=== PATIENT | male | born 1960 | race Caucasian/White ===

== ENCOUNTER 2019-09-07 12:38 | Day surgery (SDC) | payer OTHER ==
[2019-09-05 09:38] LABS: MICROSCOPIC AUTO
[~2019-09-07] VITALS: Ht 165.1 cm; Wt 78.7 kg
[~2019-09-07 12:38] MED LIST: ATEN25TA PO; FENO54TA17 PO; HYDR25TA6 PO; TAMS-11 PO
[2019-09-07] MEDS ORDERED: LACTATED RINGERS 1,000 ML IV SCH (12:51)
[2019-09-07] MEDS ORDERED: CHLORHEXIDINE 15 ML UDC MM ONE (13:00)
[2019-09-07 13:01] VITALS: BP 151/96
[2019-09-07] MEDS ORDERED: MIDAZOLAM 1 MG/ML, 2ML ONE (14:43)
[2019-09-07] MEDS ORDERED: FENTANYL PF 100 MCG/2ML ONE (14:44)
[2019-09-07] MEDS ORDERED: PROPOFOL 10 MG/ML, 20ML ONE (14:56)
[2019-09-07] MEDS ORDERED: CEFAZOLIN 1,000 MG ONE (14:56)
[2019-09-07] MEDS ORDERED: ONDANSETRON 2MG/ML, 2ML ONE (14:56)
[2019-09-07] MEDS ORDERED: DEXAMETHASONE 4 MG/ML, 1ML ONE (14:56)
[2019-09-07] MEDS ORDERED: SODIUM CHLORIDE 0.9% INTVESIC ONE (15:00)
[2019-09-07] MEDS ORDERED: MITOMYCIN INTVESIC ONE (15:00)
[2019-09-07] MEDS ORDERED: HYDROcodone/APAP 7.5-325MG/15ML UDC PO PRN (15:30)
[2019-09-07] MEDS ORDERED: FENTANYL PF 100 MCG/2ML IV PRN (15:30)
[2019-09-07] MEDS ORDERED: MEPERIDINE/PF 25MG/0.5ML IVPush PRN (15:30)
[2019-09-07] MEDS ORDERED: LORazepam 2 MG/ML, 1ML IVPush PRN (15:30)
[2019-09-07] MEDS ORDERED: HYDROmorphone 1 MG/ML, 1ML INJ IVPush PRN (15:30)
[2019-09-07] MEDS ORDERED: PROMETHAZINE 25 MG/ML, 1ML IVPush PRN (15:30)
[2019-09-07] MEDS ORDERED: hydrALAzine 20 MG/ML, 1ML ONE (16:12)
[2019-09-07] MEDS ORDERED: hydrALAzine 20 MG/ML, 1ML IV PRN (16:30)
[2019-09-08] MEDS ORDERED: FENOFIBRATE 54 MG TABLET PO SCH (09:00)
[2019-09-08] MEDS ORDERED: TAMSULOSIN 0.4 MG CAP.ER.24H PO SCH (09:00)
[2019-09-08] MEDS ORDERED: HYDROCHLOROTHIAZIDE 25 MG TABLET PO SCH (09:00)
[2019-09-08] MEDS ORDERED: ATENOLOL 25 MG TABLET PO SCH (09:00)
== END 2019-09-07 18:15 | disposition home or self-care (01) ==
LOC: OUT 12:38
PROVIDERS: ATTEND Urology
DX: D49.4 Neoplasm of unspecified behavior of bladder (principal); C67.3 Malignant neoplasm of anterior wall of bladder; I10 Essential (primary) hypertension; N28.1 Cyst of kidney, acquired; N40.0 Benign prostatic hyperplasia without lower urinary tract symptoms; Z79.899 Other long term (current) drug therapy; Z87.891 Personal history of nicotine dependence; Z98.890 Other specified postprocedural states
CPT/HCPCS: 51720; 52235; 81001; 87086; 88307; 93005; J0690; J1100; J2250; J2405; J2704; J3010; J7120; J9280; U0001

== ENCOUNTER → 2019-12-13 | Outpatient (CLI) | payer OTHER ==
[2019-12-13 10:14] LABS: MICROSCOPIC NOT IND
[2019-12-13 10:14] LABS: BASOPHILS # (AUTO) 0.04 x10^3/uL (0-0.1); BASOPHILS % (AUTO) 1 % (0-1); EOSINOPHILS % (AUTO) 4 % (1-7); LYMPHOCYTES # (AUTO) 1.78 x10^3/uL (1-3.4); LYMPHOCYTES % (AUTO) 22 % (22-44); MD NO; MEAN CORPUSCULAR HEMOGLOBIN 32.7 pg (27.5-34.5); MEAN CORPUSCULAR HGB CONC 33.8 g/dL (33.2-36.2); MEAN CORPUSCULAR VOLUME 96.9 fL (81-97); MEAN PLATELET VOLUME 8.4 fL (7.4-10.4); MONOCYTES # (AUTO) 0.57 x10^3/uL (0.2-0.8); MONOCYTES % (AUTO) 7 % (2-9); NEUTROPHILS # (AUTO) 5.25 x10^3/uL (1.8-6.8); NEUTROPHILS % (AUTO) 66 % (42-75); PLATELET COUNT 234 x10^3/uL (130-400); RED BLOOD COUNT 5.13 x10^6/uL (4.38-5.82); RED CELL DISTRIBUTION WIDTH 12.6 % (9.4-14.8)
[2019-12-13 10:25] LABS: ANION GAP 6 mmol/L (5-15); CALCIUM 9.9 mg/dL (8.5-10.1); CHLORIDE 106 mmol/L (98-107); CREATININE 1.12 mg/dL (0.7-1.3)
== END | disposition home or self-care (01) ==
LOC: STAR 07:41
PROVIDERS: ATTEND Urology
DX: Z01.818 Encounter for other preprocedural examination (principal); C67.9 Malignant neoplasm of bladder, unspecified
CPT/HCPCS: 36415; 80048; 81003; 85025; 87086; 93005

== ENCOUNTER → 2019-12-16 | Outpatient (CLI) | payer OTHER ==
[~2019-12-16] MED LIST changes: +LOVA20TA2 PO
== END | disposition home or self-care (01) ==
LOC: STAR 08:23
PROVIDERS: ATTEND Anesthesiology
DX: Z01.812 Encounter for preprocedural laboratory examination (principal); Z20.828 Contact with and (suspected) exposure to other viral communicable diseases
CPT/HCPCS: 36415; 87635

== ENCOUNTER 2019-12-20 08:00 | Day surgery (SDC) | payer OTHER ==
[~2019-12-20] VITALS: Ht 165.1 cm; Wt 78.3 kg
[~2019-12-20 08:00] MED LIST changes: -LOVA20TA2 PO
[2019-12-20] MEDS ORDERED: LACTATED RINGERS 1,000 ML IV SCH (13:53)
[2019-12-20] MEDS ORDERED: LOVA20TA2 PO (13:54)
[2019-12-20 13:56] VITALS: BP 157/99
[2019-12-20] MEDS ORDERED: CHLORHEXIDINE 15 ML UDC MM ONE (14:00)
[2019-12-20] MEDS ORDERED: FENTANYL PF 100 MCG/2ML ONE (14:18)
[2019-12-20] MEDS ORDERED: MIDAZOLAM 1 MG/ML, 2ML ONE (14:19)
[2019-12-20] MEDS ORDERED: LIDOCAINE 2%, 20ML ONE (14:49)
[2019-12-20] MEDS ORDERED: ONDANSETRON 2MG/ML, 2ML ONE (15:17)
[2019-12-20] MEDS ORDERED: PROPOFOL 10 MG/ML, 20ML ONE (15:17)
[2019-12-20] MEDS ORDERED: CEFAZOLIN 1,000 MG ONE (15:17)
[2019-12-20] MEDS ORDERED: ROCURONIUM 10MG/ML,5ML ONE (15:17)
[2019-12-20] MEDS ORDERED: DEXAMETHASONE 4 MG/ML, 1ML ONE (15:17)
[2019-12-20] MEDS ORDERED: SUGAMMADEX 200 MG/2 ML IVPush ONE (15:17)
[2019-12-20] MEDS ORDERED: hydrALAzine 20 MG/ML, 1ML IV PRN (15:30)
[2019-12-20] MEDS ORDERED: LABETALOL 5MG/ML, 20ML IV PRN (15:30)
[2019-12-20] MEDS ORDERED: ACETAMINOPHEN 325 MG TABLET PO PRN (15:30)
[2019-12-20] MEDS ORDERED: OXYcodone 5 MG/5 ML ORAL.SOL UDC PO PRN (15:30)
[2019-12-20] MEDS ORDERED: PROMETHAZINE 12.5 MG SUPP PR PRN (15:30)
[2019-12-20] MEDS ORDERED: ONDANSETRON 2MG/ML, 2ML IVPush PRN (15:30)
[2019-12-20] MEDS ORDERED: LORazepam 2 MG/ML, 1ML IVPush PRN (15:30)
[2019-12-20] MEDS ORDERED: FENTANYL PF 100 MCG/2ML IV PRN (15:30)
[2019-12-20] MEDS ORDERED: HYDROmorphone 1 MG/ML, 1ML INJ IVPush PRN (15:30)
[2019-12-20] MEDS ORDERED: PROMETHAZINE 25 MG SUPP PR PRN (15:30)
[2019-12-21] MEDS ORDERED: HYDROCHLOROTHIAZIDE 25 MG TABLET PO SCH (09:00)
[2019-12-21] MEDS ORDERED: FENOFIBRATE 54 MG TABLET PO SCH (09:00)
[2019-12-21] MEDS ORDERED: ATENOLOL 25 MG TABLET PO SCH (09:00)
== END 2019-12-20 16:30 | disposition home or self-care (01) ==
LOC: OR 08:00
PROVIDERS: ATTEND Urology
DX: C67.5 Malignant neoplasm of bladder neck (principal); N30.90 Cystitis, unspecified without hematuria; I10 Essential (primary) hypertension; Z79.899 Other long term (current) drug therapy; Z87.891 Personal history of nicotine dependence; Z98.890 Other specified postprocedural states; Z72.89 Other problems related to lifestyle
CPT/HCPCS: 52204; 88305; J0690; J1100; J2250; J2405; J2704; J3010; J7120